=== PATIENT | female | born 1980 | race Caucasian/White ===

== ENCOUNTER 2020-06-11 20:30 | Emergency (ER) | payer BC, SELFPAY ==
[2020-06-11 20:33] VITALS: BMI 26.6
--- NOTE | 2020-06-11 20:36 | PC.NURSE ---
at bedside. h2t assessment completed. no acute needs.
[2020-06-11 20:37] VITALS: BP 142/91; PULSE 64; RESP 16; TEMP 36.6; O2SAT 100
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
[2020-06-11 22:55] VITALS: BP 115/75; PULSE 75; RESP 17; TEMP 36.9; O2SAT 98
[2020-08-07 09:57] LABS: POC Glucose,Bedside 110 (70-110)
== END 2020-06-11 22:57 | disposition home or self-care (01) ==
PROVIDERS: Emergency Provider Emergency Medicine; PCP Family Medicine
DX: S50.11XA Contusion of right forearm, initial encounter (principal); S70.11XA Contusion of right thigh, initial encounter; S20.219A Contusion of unspecified front wall of thorax, initial encounter; V86.55XA Driver of 3- or 4- wheeled all-terrain vehicle (ATV) injured in nontraffic accident, initial encounter; Y92.018 Other place in single-family (private) house as the place of occurrence of the external cause
CPT/HCPCS: 71046; 73090; 73552; 82962; 99281

== ENCOUNTER 2021-01-08 12:35 | Emergency (ER) | payer BC, SELFPAY ==
[2021-01-08 14:40] VITALS: BP 131/89; PULSE 60; RESP 16; TEMP 36.6; O2SAT 100; BMI 26.6
--- NOTE | 2021-01-08 14:54 | HMH.EDUTC ---
[facility] [place] Clinical Impression: Bronchitis Sinusitis Qualifiers: Sinusitis location: unspecified location Chronicity: acute Recurrence: non-recurrent Qualified Code(s): J01.90 - Acute sinusitis, unspecified Disposition: Home, Self-Care Condition on Discharge: Good Instructions: DI for Sinusitis, DI for Acute Bronchitis Additional Instructions: Drink plenty of fluids. Take tylenol or ibuprofen for pain or fever. Take the medications as directed. Follow up with your regular doctor. GO TO THE ER FOR ANY WORSENING SYMPTOMS Prescriptions: Brompheniramine/Pseudoephed/Dm [Bromfed Dm Cough Syrup] 5 ml PO Q6HP PRN #240 ml PRN Reason: Cough Transmission Status: Received by [facility] # methylPREDNISolone [Medrol] 4 mg PO DIRECTED 6 Days #21 packet Transmission Status: Received by [facility] # Azithromycin [Z-Abdullahi 250mg Tab*] 250 mg PO UD DOSE PK #6 tab Transmission Status: Received by [facility] # Referrals: Mayda Parson [Primary Care Provider] - Forms: Work/School Release Time of Disposition: 15:15 Medical Decision Making - Medical Records Medical records reviewed: No: I reviewed the patient's medical records. - Blair Inquiry Pt receiving controlled substance: No Vital Signs: 01/08/21 14:40 01/08/21 15:33 Temperature 97.8 F 97.8 F Temperature Source Temporal Artery Scan Pulse Rate 60 Pulse Rate [Left] 60 Respiratory Rate 16 16 Blood Pressure 131/89 Blood Pressure [Right Arm] 131/89 Blood Pressure Mean [Right Arm] 103 02 Sat by Pulse Oximetry 100 - Lab Data Lab results reviewed: Yes: I reviewed the patient's lab results. Lab Results 01/08/21 14:46: Strep Scn Rapid Clinic Negative Orders (Tests/Meds): ORDERS Category Date Time Status Strep Screen Confirmation Stat Micro 01/08/21 14:46 Received [facility] [place] - General Stated complaint: sore throat, cough, H/A Time Seen by Provider: 01/08/21 14:54 Mode of Arrival: Ambulatory Source of Information: Patient Limitations: No Limitations Description of Symptoms (Recalled from Triage Doc. by RN): pt c/o fever, cough, sore throat, congestion and drainage. pt had a negative covid test on 01/03. HEENT Symptoms (Recalled from RN notes): Yes (sore throat, congestion and drainage) Resp Symptoms (Recalled from RN notes): Yes (cough) Skin Symptoms (Recalled from RN notes): No MS Symptoms (Recalled from RN notes): No Functional Status (Recalled from RN notes): fever hx - History of Present Illness Provider Complaint: She c/o sore throat, sinus congestion, cough and congestion for the past 4 days. She has been vaccinated against covid-19. - Related Data Home Medications Medication Instructions Recorded Confirmed norgestimate-ethinyl estradioL 1 tab PO DAILY 11/26/18 11/26/18 [Carmencita 0.25-0.035 mg Tablet] Previous Rx's Medication Instructions Recorded Azithromycin [Z-Abdullahi 250mg Tab*] 250 mg PO UD DOSE PK #6 tab 01/08/21 Brompheniramine/Pseudoephed/Dm 5 ml PO Q6HP PRN #240 ml 01/08/21 [Bromfed Dm Cough Syrup] methylPREDNISolone [Medrol] 4 mg PO DIRECTED 6 Days #21 01/08/21 packet Allergies Allergy/AdvReac Type Severity Reaction Status Date / Time No Known Allergies Allergy Unverified 03/18/18 10:50 - Worker's Comp Is this a Worker's Comp case?: No [facility] History - Hepatitis A Screen Drug use history?: No High risk sexual behaviors?: No History of sexually transmitted infection?: No Currently employed?: No Childcare worker?: No Do you have indoor plumbing?: Yes Do you have electricity?: Yes Attestation statement:: This patient has been screened for Hepatitis A risk factors. I have reviewed the patient's past medical history: Yes Medical History: Denies:: Cancer, Chronic Obstructive Pulmonary Disease (COPD), Diabetes Mellitus Type 1, Diabetes Mellitus Type 2, Hypertension, MRSA Laterality Cases: Bilateral: Tonsillectomy
[2021-01-08 15:33] VITALS: BP 131/89; PULSE 60; RESP 16; TEMP 36.6
[2021-01-08 19:04] LABS: UTC Strep Screen (Rapid) Negative (Negative)
== END 2021-01-08 15:34 | disposition home or self-care (01) ==
PROVIDERS: Emergency Provider Nurse Practitioner Family; PCP Family Medicine
DX: J20.9 Acute bronchitis, unspecified (principal); J01.90 Acute sinusitis, unspecified
CPT/HCPCS: 87880; 99203; G0463

== ENCOUNTER 2021-05-19 10:00 | Emergency (ER) | payer BC, SELFPAY ==
--- NOTE | 2021-05-19 12:28 | HMH.EDUTC ---
[facility] [place] Disposition Clinical Impression: Bronchitis Sinusitis Qualifiers: Sinusitis location: unspecified location Chronicity: acute Recurrence: non-recurrent Qualified Code(s): J01.90 - Acute sinusitis, unspecified Disposition: Home, Self-Care Condition on Discharge: Good Instructions: DI for Sinusitis, DI for Acute Bronchitis Additional Instructions: Drink plenty of fluids. Take tylenol or ibuprofen for pain or fever. Take the medications as directed. Follow up with your regular doctor. GO TO THE ER FOR ANY WORSENING SYMPTOMS Prescriptions: Brompheniramine/Pseudoephed/Dm [Bromfed Dm Cough Syrup] 5 ml PO Q6HP PRN #240 ml PRN Reason: Cough Transmission Status: Received by [facility] #[id number] Amoxicillin/Potassium Clav [Amox-Clav 875-125 mg Tablet] 1 tab PO BID #20 tab Transmission Status: Received by [facility] #[id number] methylPREDNISolone [Medrol] 4 mg PO DIRECTED 6 Days #21 packet Transmission Status: Received by [facility] #[id number] Referrals: Mayda Parson [Primary Care Provider] - Forms: Work/School Release Time of Disposition: 13:03 Medical Decision Making - Medical Records Medical records reviewed: No: I reviewed the patient's medical records. - Blair Inquiry Pt receiving controlled substance: No Vital Signs: 05/19/21 12:32 05/19/21 13:05 Temperature 98.1 F 98.1 F Temperature Source Oral Oral Pulse Rate 60 Pulse Rate [Left Radial] 61 Respiratory Rate 16 16 Blood Pressure 119/84 Blood Pressure [Right Arm] 122/83 Blood Pressure Mean [Right Arm] 96 02 Sat by Pulse Oximetry 100 Oxygen Delivery Method Room Air Room Air - Lab Data Lab Results 05/19/21 12:26: Strep Scn Rapid Clinic Negative Orders (Tests/Meds): ORDERS Category Date Time Status Strep Screen Confirmation Stat Micro 05/19/21 12:26 Received [facility] [place] HPI - General Stated complaint: sinus congestion Time Seen by Provider: 05/19/21 12:28 - History of Present Illness Provider Complaint: She c/o sinus congestion for thep ast 2 day. - Related Data Home Medications Medication Instructions Recorded Confirmed norgestimate-ethinyl estradioL 1 tab PO DAILY 11/26/18 11/26/18 [Carmencita 0.25-0.035 mg Tablet] Previous Rx's Medication Instructions Recorded Azithromycin [Z-Abdullahi 250mg Tab*] 250 mg PO UD DOSE PK #6 tab 01/08/21 Brompheniramine/Pseudoephed/Dm 5 ml PO Q6HP PRN #240 ml 01/08/21 [Bromfed Dm Cough Syrup] methylPREDNISolone [Medrol] 4 mg PO DIRECTED 6 Days #21 01/08/21 packet Amoxicillin/Potassium Clav 1 tab PO BID #20 tab 05/19/21 [Amox-Clav 875-125 mg Tablet] Brompheniramine/Pseudoephed/Dm 5 ml PO Q6HP PRN #240 ml 05/19/21 [Bromfed Dm Cough Syrup] methylPREDNISolone [Medrol] 4 mg PO DIRECTED 6 Days #21 05/19/21 packet Allergies Allergy/AdvReac Type Severity Reaction Status Date / Time No Known Allergies Allergy Unverified 03/18/18 10:50 [facility] History - Hepatitis A Screen Attestation statement:: This patient has been screened for Hepatitis A risk factors. I have reviewed the patient's past medical history: Yes Medical History: Denies:: Cancer, Chronic Obstructive Pulmonary Disease (COPD), Diabetes Mellitus Type 1, Diabetes Mellitus Type 2, Hypertension, MRSA Laterality Cases: Bilateral: Tonsillectomy Amputation: No Fractures: No - Social History Smoking Status: Never smoker Alcohol Intake: never Occupational Status: employed ROS Obtained: Yes All systems reviewed & no additional complaints - Constitutional Constitutional: Denies fatigue, Denies fever(s) - Eyes Eyes: Denies eye discharge - ENT Ears, Nose, Mouth, and Throat: Reports as per HPI - Cardiovascular Cardiovascular: Denies chest pain - Respiratory Respiratory: Denies chest congestion, Reports cough Physical Exam - General General appearance: alert, in no apparent distress - Head Head exam: atraumatic, normoceph
[2021-05-19 12:32] VITALS: BP 122/83; PULSE 61; RESP 16; TEMP 36.7; O2SAT 100; BMI 27.2
[2021-05-19 12:35] LABS: UTC Strep Screen (Rapid) Negative (Negative)
[2021-05-19 13:05] VITALS: BP 119/84; PULSE 60; RESP 16; TEMP 36.7; O2SAT 100
== END 2021-05-19 13:06 | disposition home or self-care (01) ==
PROVIDERS: Emergency Provider Nurse Practitioner Family; PCP Family Medicine
DX: J20.9 Acute bronchitis, unspecified (principal); J01.90 Acute sinusitis, unspecified
CPT/HCPCS: 87880; 99212; G0463

== ENCOUNTER 2021-12-04 18:52 | Emergency (ER) | payer BC, SELFPAY ==
[2021-12-04 20:10] VITALS: BP 140/80; PULSE 64; RESP 19; TEMP 36.9; O2SAT 98; BMI 27.4
[2021-12-04 20:29] LABS: UTC Strep Screen (Rapid) Negative (Negative)
--- NOTE | 2021-12-04 20:59 | EXP.UTC ---
Discharge Plan Disposition Patient Disposition: Home, Self-Care Condition: Good Prescriptions Prescriptions: New cefdinir 300 mg capsule 300 mg PO BID 7 Days Qty: 14 0RF fluconazole [Diflucan] 150 mg tablet 150 mg PO Q3D Qty: 2 0RF Rx Instructions: may repeat second dose 72 hrs after first dose if symptoms persist prednisone 20 mg tablet 20 mg PO BID 5 Days Qty: 10 0RF No Action azithromycin 250 MG tablet 250 mg PO UD DOSE PK Qty: 6 0RF Rx Instructions: Take two (2) tablets today, then one (1) tablet days #2 thru #5 methylprednisolone 4 MG tablets,dose pack 4 mg PO DIRECTED 6 Days Qty: 21 0RF ityblaxfgjtzezv-sveknbqbj-IG 118 ML syrup 5 ml PO Q6HP PRN (Reason: Cough) Qty: 240 0RF norgestimate-ethinyl estradiol 0.25-0. tablet 1 tab PO DAILY methylprednisolone 4 MG tablets,dose pack 4 mg PO DIRECTED 6 Days Qty: 21 0RF uqalotdrzfafvgj-dogwxpudc-CD 118 ML syrup 5 ml PO Q6HP PRN (Reason: Cough) Qty: 240 0RF amoxicillin-pot clavulanate 1 EACH tablet 1 tab PO BID Qty: 20 0RF Referrals Follow up/Referrals: Mayda Parson [Primary Care Provider] - See instructions Activity Restrictions/Add. Instructions Additional Instructions/Restrictions: *Monitor Temp, Over the counter Motrin or Tylenol as directed/as needed Tylenol every 4 hours and Motrin every 6 hours (as long as your family doctor has told you that you can take it) for fever or pain. and straight to ER if unable to lower temp less than 101.0 after medication given *Warm salt water gargles may help to soothe the throat *Throat Lozenges? *Warm fluids like tea with honey may help to soothe the throat? *Sleep elevated *Humidifier/Vaporizer Your throat swab was sent for culture. Those results are typically sent to your primary care. Be sure to follow up in 2-3 days with your family doctor/primary care physician if no improvement so they can review those result and treat if necessary. If you don?t have a primary care doctor, I recommend you get one but in the mean time, you will have to return to a walk in clinic Follow up IMMEDIATELY for new or worsening symptoms or no Noticeable improvement over the next 48-72 hours. 911 for difficulty breathing or swallowing Clinical Impressions Clinical Impression: Sinusitis Instructions Patient Instructions: DI for Sinusitis, Sinusitis Discharge ED Provider: Heena Lino [facility] [place] HPI General Stated complaint: cough, sore throat, runny nose, congestion Mode of Arrival: Ambulatory Source of Information: Patient Limitations: No Limitations Time Seen by Provider: 12/04/21 20:59 Description of Symptoms (Recalled from Triage Doc. by RN): PATIENT C/O SORE THROAT AND COUGH X 2 DAYS HEENT Symptoms (Recalled from RN notes): Yes Resp Symptoms (Recalled from RN notes): Yes Skin Symptoms (Recalled from RN notes): No MS Symptoms (Recalled from RN notes): No Functional Status (Recalled from RN notes): WNL History of Present Illness Provider Complaint: Patient states that she has been having cough, sore throat and nasal congestion and feels like it is trying to move into her chest area States that feels like it did when she had strep or bronchitis Related Data Home Medications Medication Instructions Recorded Confirmed norgestimate 0.25 mg-ethinyl 1 tab PO DAILY control 11/26/18 11/26/18 estradiol 35 mcg tablet Previous Rx's Medication Instructions Recorded azithromycin 250 mg tablet 250 mg PO UD DOSE PK #6 tabs 01/08/21 yaipgjzgyopjjwr-ndlojoldddrquki-BJ 5 ml PO Q6HP PRN Cough #240 mL 01/08/21 2 mg-30 mg-10 mg/5 mL oral syrup methylprednisolone 4 mg tablets in 4 mg PO DIRECTED 6 days #21 01/08/21 a dose pack packets amoxicillin 875 mg-potassium 1 tab PO BID #20 tabs 05/19/21 clavulanate 125 mg tablet vqbssjejrcnngqp-quelrkklykmcoya-DL 5 ml PO Q6HP PRN Cough #240 mL 05/19/21 2 mg-30 mg-10 mg/5 mL oral syrup
[2021-12-04 21:05] VITALS: BP 140/80; PULSE 64; RESP 19; TEMP 36.9; O2SAT 98
== END 2021-12-04 21:13 | disposition home or self-care (01) ==
PROVIDERS: Emergency Provider Nurse Practitioner; PCP Family Medicine
DX: J32.9 Chronic sinusitis, unspecified (principal)
CPT/HCPCS: 87880; 99212; G0463